=== PATIENT | female | born 1980 | race Two or more races ===

== ENCOUNTER 2021-08-06 11:05 | Inpatient (IN) | payer MEDICAID ==
[~2021-08-06] VITALS: Ht 190.5 cm; Wt 99.8 kg
[2021-08-06 11:30] VITALS: BP 132/87
[2021-08-06 12:03] VITALS: BP 132/87
[2021-08-06] MEDS: INSULIN LISPRO 100 UNITS/ML SUBCUT SCH ×3 (13:00→21:02)
[2021-08-06] MEDS: BLOOD SUGAR DIAGNOSTIC STRIP TEST SCH ×3 (13:00→20:54)
[2021-08-06] MEDS ORDERED: DEXTROSE 50% WATER 50ML SYRINGE IV PRN (13:00)
[2021-08-06] MEDS ORDERED: ACETAMINOPHEN 650MG/20.3ML UDC PO PRN (13:15)
[2021-08-06] MEDS ORDERED: DULA0.75 SQ (13:51)
[2021-08-06] MEDS ORDERED: BENA1TAB21 MT (13:51)
[2021-08-06] MEDS ORDERED: ATOR10TA MT (13:51)
[2021-08-06] MEDS ORDERED: ASPI-1497 MT (13:51)
[2021-08-06] MEDS ORDERED: METF-416 MT (13:51)
[2021-08-06] MEDS ORDERED: ONDANSETRON HCL 4MG TABLET PO PRN (15:00)
[2021-08-06] MEDS: GLIPIZIDE 5MG TABLET PO SCH (16:01)
[2021-08-06] MEDS: LACTULOSE 20G/30ML UDC PO SCH ×2 (16:02→21:02)
[2021-08-06 20:00] VITALS: BP 150/86
[2021-08-06 20:21] LABS: T4 FREE 1.04 ng/dL (0.76-1.46)
[2021-08-06] MEDS: ATORVASTATIN CALCIUM 40MG TABLET PO SCH (20:49)
[2021-08-06] MEDS: PANTOPRAZOLE 40MG DR TABLET PO SCH (20:49)
[2021-08-07] MEDS: LACTULOSE 20G/30ML UDC PO SCH ×3 (05:25→20:56)
[2021-08-07] MEDS: BLOOD SUGAR DIAGNOSTIC STRIP TEST SCH ×4 (06:33→20:56)
[2021-08-07] MEDS: INSULIN LISPRO 100 UNITS/ML SUBCUT SCH ×4 (06:41→21:25)
[2021-08-07 08:00] VITALS: BP 146/88
[2021-08-07] MEDS: DOCUSATE SODIUM 250MG CAPSULE PO SCH ×2 (09:00→09:11)
[2021-08-07] MEDS: CLOPIDOGREL 75MG TABLET PO SCH (09:11)
[2021-08-07] MEDS: PANTOPRAZOLE 40MG DR TABLET PO SCH ×2 (09:11→20:56)
[2021-08-07] MEDS: ASPIRIN 81MG TABLET PO SCH (09:11)
[2021-08-07] MEDS: GLIPIZIDE 5MG TABLET PO SCH ×2 (09:11→17:18)
[2021-08-07 12:10] LABS: BASOPHILS % 0.8 % (0.0-2.0); EOSINOPHILS % 1.8 % (0.0-5.0); HEMATOCRIT. 29.9 % (36.0-48.0); LYMPHOCYTES % 27.3 % (20.0-50.0); MEAN CORPUSCULAR HEMOGLOBIN 25.8 pg (28.0-32.0); MEAN CORPUSCULAR VOLUME 77.2 fL (81.0-99.0); MEAN PLATELET VOLUME 7.4 fl (7.4-10.4); MONOCYTES % 5.6 % (2.0-8.0); NEUTROPHILS % 64.5 % (40.0-76.0); PLATELET 476 x1000/uL (130-400); RED BLOOD CELL COUNT 3.87 mill/uL (4.2-5.4); RED CELL DISTRIBUTION WIDTH 15.9 % (11.6-14.6)
[2021-08-07 12:19] LABS: CHLORIDE 105 mEq/L (98-107)
[2021-08-07 12:26] LABS: HDL CHOLESTEROL 25 mg/dL (40-59); LDL CHOLESTEROL 41 mg/dL (5-100); TOTAL IRON BINDING CAPACITY 349 ug/dL (250-450)
[2021-08-07 12:39] LABS: FOLIC ACID (FOLATE) SERUM 17.6 ng/mL (>5.38)
[2021-08-07] MEDS: FERROUS SULFATE 325MG TABLET PO SCH (17:19)
[2021-08-07 20:00] VITALS: BP 141/82
[2021-08-07] MEDS: ATORVASTATIN CALCIUM 40MG TABLET PO SCH (20:56)
[2021-08-08] MEDS: LACTULOSE 20G/30ML UDC PO SCH ×3 (06:00→20:50)
[2021-08-08] MEDS: BLOOD SUGAR DIAGNOSTIC STRIP TEST SCH ×4 (07:13→20:37)
[2021-08-08 08:00] VITALS: BP 138/76
[2021-08-08] MEDS: CYANOCOBALAMIN 1000MCG/ML VIAL IM SCH (08:44)
[2021-08-08] MEDS: FERROUS SULFATE 325MG TABLET PO SCH ×3 (08:45→16:35)
[2021-08-08] MEDS: ASPIRIN 81MG TABLET PO SCH (08:45)
[2021-08-08] MEDS: CLOPIDOGREL 75MG TABLET PO SCH (08:45)
[2021-08-08] MEDS: GLIPIZIDE 5MG TABLET PO SCH ×2 (08:45→16:35)
[2021-08-08] MEDS: DOCUSATE SODIUM 250MG CAPSULE PO SCH (08:45)
[2021-08-08] MEDS: ASCORBIC ACID 500 MG TABLET PO SCH (08:46)
[2021-08-08] MEDS: PANTOPRAZOLE 40MG DR TABLET PO SCH ×2 (08:46→20:41)
[2021-08-08] MEDS: INSULIN LISPRO 100 UNITS/ML SUBCUT SCH ×4 (08:57→20:45)
[2021-08-08] MEDS ORDERED: GADOTERATE MEGLUMINE 5 MMOL/10 ML VIAL IV ONE (12:39)
[2021-08-08 20:00] VITALS: BP 145/81
[2021-08-08] MEDS: ATORVASTATIN CALCIUM 40MG TABLET PO SCH (20:41)
[2021-08-08 20:43] LABS: UCG SCREEN NEGATIVE
[2021-08-09] MEDS: LACTULOSE 20G/30ML UDC PO SCH ×3 (06:00→21:58)
[2021-08-09 06:18] LABS: BASOPHILS % 0.7 % (0.0-2.0); EOSINOPHILS % 2.6 % (0.0-5.0); HEMATOCRIT. 30.2 % (36.0-48.0); HEMOGLOBIN. 9.9 g/dL (12.0-16.0); LYMPHOCYTES % 33.8 % (20.0-50.0); MEAN CORPUSCULAR HEMOGLOBIN 25.3 pg (28.0-32.0); MEAN CORPUSCULAR VOLUME 77.2 fL (81.0-99.0); MONOCYTES % 8.3 % (2.0-8.0); NEUTROPHILS % 54.6 % (40.0-76.0); PLATELET 406 x1000/uL (130-400); RED BLOOD CELL COUNT 3.91 mill/uL (4.2-5.4); RED CELL DISTRIBUTION WIDTH 15.1 % (11.6-14.6)
[2021-08-09 06:27] LABS: CHLORIDE 105 mEq/L (98-107)
[2021-08-09] MEDS: INSULIN LISPRO 100 UNITS/ML SUBCUT SCH ×4 (06:41→22:10)
[2021-08-09] MEDS: BLOOD SUGAR DIAGNOSTIC STRIP TEST SCH ×4 (06:42→21:57)
[2021-08-09 08:00] VITALS: BP 134/75
[2021-08-09] MEDS: CYANOCOBALAMIN 1000MCG/ML VIAL IM SCH (08:23)
[2021-08-09] MEDS: DOCUSATE SODIUM 250MG CAPSULE PO SCH (08:23)
[2021-08-09] MEDS: ASPIRIN 81MG TABLET PO SCH (08:24)
[2021-08-09] MEDS: GLIPIZIDE 5MG TABLET PO SCH ×2 (08:24→17:13)
[2021-08-09] MEDS: PANTOPRAZOLE 40MG DR TABLET PO SCH ×2 (08:24→21:57)
[2021-08-09] MEDS: FERROUS SULFATE 325MG TABLET PO SCH ×3 (08:24→17:13)
[2021-08-09] MEDS: CLOPIDOGREL 75MG TABLET PO SCH (08:24)
[2021-08-09] MEDS: ASCORBIC ACID 500 MG TABLET PO SCH (08:27)
[2021-08-09] MEDS ORDERED: IOHEXOL-350 100 ML BOTTLE ONE (13:40)
[2021-08-09 20:00] VITALS: BP 140/79
[2021-08-09] MEDS: ATORVASTATIN CALCIUM 40MG TABLET PO SCH (21:57)
[2021-08-10 04:08] LABS: ANTI-THROMBIN ACTIVITY 119 % (75-135); PROTEIN C FUNCTIONAL 116 % (73-180)
[2021-08-10] MEDS: LACTULOSE 20G/30ML UDC PO SCH ×3 (05:14→22:00)
[2021-08-10] MEDS: BLOOD SUGAR DIAGNOSTIC STRIP TEST SCH ×4 (05:30→21:00)
[2021-08-10] MEDS: INSULIN LISPRO 100 UNITS/ML SUBCUT SCH ×4 (07:40→22:15)
[2021-08-10 08:00] VITALS: BP 122/76
[2021-08-10] MEDS: ASCORBIC ACID 500 MG TABLET PO SCH (08:24)
[2021-08-10] MEDS: CLOPIDOGREL 75MG TABLET PO SCH (08:24)
[2021-08-10] MEDS: GLIPIZIDE 5MG TABLET PO SCH ×2 (08:24→17:05)
[2021-08-10] MEDS: DOCUSATE SODIUM 250MG CAPSULE PO SCH (08:24)
[2021-08-10] MEDS: ASPIRIN 81MG TABLET PO SCH (08:24)
[2021-08-10] MEDS: FERROUS SULFATE 325MG TABLET PO SCH ×3 (08:24→17:05)
[2021-08-10] MEDS: PANTOPRAZOLE 40MG DR TABLET PO SCH ×2 (08:24→22:14)
[2021-08-10] MEDS: CYANOCOBALAMIN 1000MCG/ML VIAL IM SCH (08:25)
[2021-08-10 20:00] VITALS: BP 165/93
[2021-08-10] MEDS: ATORVASTATIN CALCIUM 40MG TABLET PO SCH (22:14)
[2021-08-11] MEDS: LACTULOSE 20G/30ML UDC PO SCH ×3 (06:00→22:00)
[2021-08-11] MEDS: INSULIN LISPRO 100 UNITS/ML SUBCUT SCH ×4 (06:03→18:48)
[2021-08-11] MEDS: BLOOD SUGAR DIAGNOSTIC STRIP TEST SCH ×5 (06:30→22:04)
[2021-08-11 08:07] VITALS: BP 127/85
[2021-08-11 08:31] LABS: UCG SCREEN NEGATIVE
[2021-08-11] MEDS: DOCUSATE SODIUM 250MG CAPSULE PO SCH (09:00)
[2021-08-11] MEDS: ASCORBIC ACID 500 MG TABLET PO SCH (09:11)
[2021-08-11] MEDS: ASPIRIN 81MG TABLET PO SCH (09:11)
[2021-08-11] MEDS: CLOPIDOGREL 75MG TABLET PO SCH (09:11)
[2021-08-11] MEDS: CYANOCOBALAMIN 1000MCG/ML VIAL IM SCH (09:11)
[2021-08-11] MEDS: FERROUS SULFATE 325MG TABLET PO SCH ×3 (09:11→16:25)
[2021-08-11] MEDS: GLIPIZIDE 5MG TABLET PO SCH (09:11)
[2021-08-11] MEDS: PANTOPRAZOLE 40MG DR TABLET PO SCH ×2 (09:11→22:06)
[2021-08-11 13:07] LABS: ANTI-CARDIOLIPIN AB IGA < 9 APL U/mL (0-11); ANTI-CARDIOLIPIN AB IGG < 9 GPL U/mL (0-14); ANTI-CARDIOLIPIN AB IGM 14 MPL U/mL (0-12)
[2021-08-11] MEDS: GLIPIZIDE 10MG TABLET PO SCH (16:25)
[2021-08-11] MEDS ORDERED: IOHEXOL-350 100 ML BOTTLE ONE (17:12)
[2021-08-11] MEDS: LINAGLIPTIN 5MG TABLET PO SCH ×2 (18:47→22:06)
[2021-08-11 20:00] VITALS: BP 140/77
[2021-08-11] MEDS: ATORVASTATIN CALCIUM 40MG TABLET PO SCH (22:06)
[2021-08-11] MEDS: INSULIN GLARGINE UD 100 UNITS/ML SYR SUBCUT SCH (22:13)
[2021-08-12] MEDS: LACTULOSE 20G/30ML UDC PO SCH ×3 (06:00→21:24)
[2021-08-12] MEDS: INSULIN LISPRO (LOW DOSE) 100 UNITS/ML SUBCUT SCH ×3 (06:43→17:00)
[2021-08-12] MEDS ORDERED: INSULIN LISPRO 100 UNITS/ML SUBCUT SCH (07:00)
[2021-08-12 08:12] VITALS: BP 140/82
[2021-08-12] MEDS: METFORMIN HCL 500MG TABLET PO SCH ×2 (08:30→18:08)
[2021-08-12] MEDS: ASCORBIC ACID 500 MG TABLET PO SCH (08:30)
[2021-08-12] MEDS: FERROUS SULFATE 325MG TABLET PO SCH ×3 (08:30→18:07)
[2021-08-12] MEDS: GLIPIZIDE 10MG TABLET PO SCH ×2 (08:30→18:08)
[2021-08-12] MEDS: CLOPIDOGREL 75MG TABLET PO SCH (08:30)
[2021-08-12] MEDS: DOCUSATE SODIUM 250MG CAPSULE PO SCH (08:30)
[2021-08-12] MEDS: PANTOPRAZOLE 40MG DR TABLET PO SCH ×2 (08:30→21:24)
[2021-08-12] MEDS: ASPIRIN 81MG TABLET PO SCH (08:30)
[2021-08-12] MEDS: CYANOCOBALAMIN 1000MCG/ML VIAL IM SCH (08:31)
[2021-08-12] MEDS: INSULIN LISPRO 100 UNITS/ML SUBCUT SCH ×3 (08:37→17:00)
[2021-08-12] MEDS: BLOOD SUGAR DIAGNOSTIC STRIP TEST SCH ×3 (11:15→21:24)
[2021-08-12 19:06] LABS: 25-HYDROXY VITAMIN D3 13 ng/mL (.)
[2021-08-12 20:00] VITALS: BP 132/80
[2021-08-12] MEDS: ATORVASTATIN CALCIUM 40MG TABLET PO SCH (21:23)
[2021-08-12] MEDS: INSULIN GLARGINE UD 100 UNITS/ML SYR SUBCUT SCH (21:28)
[2021-08-13] MEDS: LACTULOSE 20G/30ML UDC PO SCH (06:52)
[2021-08-13] MEDS: BLOOD SUGAR DIAGNOSTIC STRIP TEST SCH ×4 (06:54→21:04)
[2021-08-13] MEDS: INSULIN LISPRO (LOW DOSE) 100 UNITS/ML SUBCUT SCH ×3 (07:23→17:00)
[2021-08-13] MEDS: INSULIN LISPRO 100 UNITS/ML SUBCUT SCH ×3 (07:28→17:00)
[2021-08-13 08:00] VITALS: BP 129/84
[2021-08-13] MEDS: FERROUS SULFATE 325MG TABLET PO SCH ×3 (08:14→17:27)
[2021-08-13] MEDS: PANTOPRAZOLE 40MG DR TABLET PO SCH ×2 (08:14→21:04)
[2021-08-13] MEDS: LINAGLIPTIN 5MG TABLET PO SCH (08:14)
[2021-08-13] MEDS: ASCORBIC ACID 500 MG TABLET PO SCH (08:14)
[2021-08-13] MEDS: CLOPIDOGREL 75MG TABLET PO SCH (08:14)
[2021-08-13] MEDS: METFORMIN HCL 500MG TABLET PO SCH ×2 (08:14→17:00)
[2021-08-13] MEDS: DOCUSATE SODIUM 250MG CAPSULE PO SCH (08:14)
[2021-08-13] MEDS: CYANOCOBALAMIN 1000MCG/ML VIAL IM SCH (08:14)
[2021-08-13] MEDS: GLIPIZIDE 10MG TABLET PO SCH ×2 (08:14→17:00)
[2021-08-13] MEDS: ASPIRIN 81MG TABLET PO SCH (08:14)
[2021-08-13 20:00] VITALS: BP 132/84
[2021-08-13] MEDS: ATORVASTATIN CALCIUM 40MG TABLET PO SCH (21:04)
[2021-08-13] MEDS: INSULIN GLARGINE UD 100 UNITS/ML SYR SUBCUT SCH (22:27)
[2021-08-14] MEDS: BLOOD SUGAR DIAGNOSTIC STRIP TEST SCH ×4 (06:35→20:07)
[2021-08-14] MEDS: INSULIN LISPRO 100 UNITS/ML SUBCUT SCH ×3 (06:38→17:00)
[2021-08-14] MEDS: INSULIN LISPRO (LOW DOSE) 100 UNITS/ML SUBCUT SCH ×3 (06:39→17:00)
[2021-08-14 08:00] VITALS: BP 102/74
[2021-08-14 08:32] LABS: BASOPHILS % 0.7 % (0.0-2.0); EOSINOPHILS % 1.6 % (0.0-5.0); HEMATOCRIT. 34.1 % (36.0-48.0); HEMOGLOBIN. 11.1 g/dL (12.0-16.0); LYMPHOCYTES % 28.3 % (20.0-50.0); MEAN CORPUSCULAR HEMOGLOBIN 25.6 pg (28.0-32.0); MEAN CORPUSCULAR VOLUME 78.9 fL (81.0-99.0); MEAN PLATELET VOLUME 8.8 fl (7.4-10.4); MONOCYTES % 5.5 % (2.0-8.0); NEUTROPHILS % 63.9 % (40.0-76.0); PLATELET 332 x1000/uL (130-400); RED BLOOD CELL COUNT 4.33 mill/uL (4.2-5.4); RED CELL DISTRIBUTION WIDTH 15.9 % (11.6-14.6)
[2021-08-14 08:53] LABS: CHLORIDE 104 mEq/L (98-107)
[2021-08-14] MEDS: ASPIRIN 81MG TABLET PO SCH (09:30)
[2021-08-14] MEDS: CLOPIDOGREL 75MG TABLET PO SCH (09:30)
[2021-08-14] MEDS: METFORMIN HCL 500MG TABLET PO SCH ×2 (09:30→17:38)
[2021-08-14] MEDS: DOCUSATE SODIUM 250MG CAPSULE PO SCH (09:30)
[2021-08-14] MEDS: LINAGLIPTIN 5MG TABLET PO SCH (09:31)
[2021-08-14] MEDS: PANTOPRAZOLE 40MG DR TABLET PO SCH ×2 (09:31→20:07)
[2021-08-14] MEDS: FERROUS SULFATE 325MG TABLET PO SCH ×3 (09:31→17:41)
[2021-08-14] MEDS: GLIPIZIDE 10MG TABLET PO SCH ×2 (09:31→17:38)
[2021-08-14] MEDS: ASCORBIC ACID 500 MG TABLET PO SCH (09:31)
[2021-08-14] MEDS: CYANOCOBALAMIN 1000MCG/ML VIAL IM SCH (09:34)
[2021-08-14] MEDS ORDERED: DEXTROSE 50% WATER 50ML SYRINGE IV PRN (17:30)
[2021-08-14 20:00] VITALS: BP 119/75
[2021-08-14] MEDS: ATORVASTATIN CALCIUM 40MG TABLET PO SCH (20:06)
[2021-08-14] MEDS: INSULIN GLARGINE UD 100 UNITS/ML SYR SUBCUT SCH (22:08)
[2021-08-15] MEDS: BLOOD SUGAR DIAGNOSTIC STRIP TEST SCH ×4 (05:28→21:02)
[2021-08-15] MEDS: INSULIN LISPRO 100 UNITS/ML SUBCUT SCH ×3 (06:50→17:00)
[2021-08-15] MEDS: INSULIN LISPRO (LOW DOSE) 100 UNITS/ML SUBCUT SCH ×3 (07:08→17:00)
[2021-08-15 08:10] VITALS: BP 120/75
[2021-08-15] MEDS: DOCUSATE SODIUM 250MG CAPSULE PO SCH (08:52)
[2021-08-15] MEDS: GLIPIZIDE 10MG TABLET PO SCH ×2 (08:52→17:11)
[2021-08-15] MEDS: LINAGLIPTIN 5MG TABLET PO SCH (08:52)
[2021-08-15] MEDS: ASPIRIN 81MG TABLET PO SCH (08:52)
[2021-08-15] MEDS: ASCORBIC ACID 500 MG TABLET PO SCH (08:52)
[2021-08-15] MEDS: FERROUS SULFATE 325MG TABLET PO SCH ×3 (08:52→17:11)
[2021-08-15] MEDS: PANTOPRAZOLE 40MG DR TABLET PO SCH ×2 (08:53→21:02)
[2021-08-15] MEDS: METFORMIN HCL 500MG TABLET PO SCH ×2 (08:53→17:00)
[2021-08-15] MEDS: CLOPIDOGREL 75MG TABLET PO SCH (08:53)
[2021-08-15] MEDS ORDERED: ERGOCALCIFEROL 50000UNITS CAPSULE PO SCH (12:00)
[2021-08-15 20:00] VITALS: BP 131/80
[2021-08-15] MEDS: ATORVASTATIN CALCIUM 40MG TABLET PO SCH (21:02)
[2021-08-15] MEDS: INSULIN GLARGINE UD 100 UNITS/ML SYR SUBCUT SCH (21:40)
[2021-08-15] MEDS ORDERED: INSULIN GLARGINE UD 100 UNITS/ML SYR SUBCUT NR (22:00)
[2021-08-16] MEDS: BLOOD SUGAR DIAGNOSTIC STRIP TEST SCH ×4 (05:39→21:00)
[2021-08-16] MEDS: INSULIN LISPRO (LOW DOSE) 100 UNITS/ML SUBCUT SCH ×3 (05:39→17:00)
[2021-08-16 08:00] VITALS: BP 123/80
[2021-08-16] MEDS: LINAGLIPTIN 5MG TABLET PO SCH (08:34)
[2021-08-16] MEDS: CLOPIDOGREL 75MG TABLET PO SCH (08:34)
[2021-08-16] MEDS: FERROUS SULFATE 325MG TABLET PO SCH ×3 (08:34→17:06)
[2021-08-16] MEDS: PANTOPRAZOLE 40MG DR TABLET PO SCH ×2 (08:34→22:03)
[2021-08-16] MEDS: ASPIRIN 81MG TABLET PO SCH (08:35)
[2021-08-16] MEDS: DOCUSATE SODIUM 250MG CAPSULE PO SCH (08:35)
[2021-08-16] MEDS: GLIPIZIDE 10MG TABLET PO SCH ×2 (08:35→17:06)
[2021-08-16] MEDS: METFORMIN HCL 500MG TABLET PO SCH ×2 (08:35→17:06)
[2021-08-16] MEDS: ASCORBIC ACID 500 MG TABLET PO SCH (08:35)
[2021-08-16 20:00] VITALS: BP 130/79
[2021-08-16] MEDS: INSULIN GLARGINE UD 100 UNITS/ML SYR SUBCUT SCH (22:00)
[2021-08-16] MEDS: ATORVASTATIN CALCIUM 40MG TABLET PO SCH (22:02)
[2021-08-17] MEDS: BLOOD SUGAR DIAGNOSTIC STRIP TEST SCH ×4 (06:05→21:12)
[2021-08-17] MEDS: INSULIN LISPRO (LOW DOSE) 100 UNITS/ML SUBCUT SCH ×3 (06:06→18:00)
[2021-08-17 08:00] VITALS: BP 118/82
[2021-08-17] MEDS: GLIPIZIDE 10MG TABLET PO SCH ×2 (10:44→18:23)
[2021-08-17] MEDS: LINAGLIPTIN 5MG TABLET PO SCH (10:45)
[2021-08-17] MEDS: ASPIRIN 81MG TABLET PO SCH (10:45)
[2021-08-17] MEDS: PANTOPRAZOLE 40MG DR TABLET PO SCH ×2 (10:45→21:11)
[2021-08-17] MEDS: FERROUS SULFATE 325MG TABLET PO SCH ×3 (10:45→18:24)
[2021-08-17] MEDS: METFORMIN HCL 500MG TABLET PO SCH ×2 (10:45→18:23)
[2021-08-17] MEDS: ASCORBIC ACID 500 MG TABLET PO SCH (10:46)
[2021-08-17] MEDS: CLOPIDOGREL 75MG TABLET PO SCH (10:46)
[2021-08-17] MEDS: DOCUSATE SODIUM 250MG CAPSULE PO SCH (10:52)
[2021-08-17 20:00] VITALS: BP 125/76
[2021-08-17] MEDS: ATORVASTATIN CALCIUM 40MG TABLET PO SCH (21:11)
[2021-08-17] MEDS ORDERED: INSULIN GLARGINE UD 100 UNITS/ML SYR SUBCUT SCH (22:00)
[2021-08-18] MEDS: INSULIN LISPRO (LOW DOSE) 100 UNITS/ML SUBCUT SCH ×2 (06:10→12:02)
[2021-08-18] MEDS: BLOOD SUGAR DIAGNOSTIC STRIP TEST SCH ×2 (06:10→11:28)
[2021-08-18 07:38] VITALS: BP 121/74
[2021-08-18] MEDS: DOCUSATE SODIUM 250MG CAPSULE PO SCH (09:00)
[2021-08-18] MEDS: CLOPIDOGREL 75MG TABLET PO SCH (09:10)
[2021-08-18] MEDS: LINAGLIPTIN 5MG TABLET PO SCH (09:10)
[2021-08-18] MEDS: ASPIRIN 81MG TABLET PO SCH (09:10)
[2021-08-18] MEDS: FERROUS SULFATE 325MG TABLET PO SCH ×2 (09:10→11:27)
[2021-08-18] MEDS: METFORMIN HCL 500MG TABLET PO SCH (09:11)
[2021-08-18] MEDS: GLIPIZIDE 10MG TABLET PO SCH (09:11)
[2021-08-18] MEDS: PANTOPRAZOLE 40MG DR TABLET PO SCH (09:11)
[2021-08-18] MEDS: ASCORBIC ACID 500 MG TABLET PO SCH (09:11)
[2021-08-18 14:18] VITALS: BP_SYST 121; BP_DIAS 74; BP_DIAS 82
[2021-08-21] MEDS ORDERED: CYANOCOBALAMIN 1000MCG/ML VIAL IM SCH (09:00)
== END 2021-08-18 16:40 | DRG 58 ==
PROVIDERS: ADMIT Physical Medicine & Rehabilitation Spinal Cord Injury Medicine; ATTEND Hospitalist
DX: I69.351 Hemiplegia and hemiparesis following cerebral infarction affecting right dominant side (principal); I63.9 Cerebral infarction, unspecified; D63.8 Anemia in other chronic diseases classified elsewhere; E11.40 Type 2 diabetes mellitus with diabetic neuropathy, unspecified; I11.9 Hypertensive heart disease without heart failure; E61.1 Iron deficiency; N39.0 Urinary tract infection, site not specified; R13.10 Dysphagia, unspecified; R79.1 Abnormal coagulation profile; E11.65 Type 2 diabetes mellitus with hyperglycemia; E55.9 Vitamin D deficiency, unspecified; E66.3 Overweight; E78.5 Hyperlipidemia, unspecified; I65.29 Occlusion and stenosis of unspecified carotid artery; R47.1 Dysarthria and anarthria; Z20.822 Contact with and (suspected) exposure to COVID-19; R26.9 Unspecified abnormalities of gait and mobility; R53.81 Other malaise; E53.8 Deficiency of other specified B group vitamins; I34.0 Nonrheumatic mitral (valve) insufficiency; R26.89 Other abnormalities of gait and mobility; Z68.27 Body mass index [BMI] 27.0-27.9, adult; Z82.49 Family history of ischemic heart disease and other diseases of the circulatory system; Z83.3 Family history of diabetes mellitus; Z79.84 Long term (current) use of oral hypoglycemic drugs; I69.322 Dysarthria following cerebral infarction; I69.391 Dysphagia following cerebral infarction; I69.320 Aphasia following cerebral infarction; Z88.0 Allergy status to penicillin; Z79.02 Long term (current) use of antithrombotics/antiplatelets; Z79.899 Other long term (current) drug therapy; Z79.82 Long term (current) use of aspirin; Z79.4 Long term (current) use of insulin
CPT/HCPCS: 36415; 70496; 70498; 70544; 70552; 70553; 80048; 80053; 80061; 81025; 81400; 81403; 81407; 81479; 82140; 82306; 82607; 82728; 82746; 82962; 83036; 83540; 83550; 84134; 84439; 84443; 84481; 84681; 85025; 85300; 85303; 85306; 86147; 87426; 92523; 92610; 93005; 93306; 93880; 93970; 97110; 97112; 97116; 97150; 97163; 97166; 97530; 97535; A9577; J1815; J3420; Q9967